=== PATIENT | male | born 1995 | race Caucasian/White ===

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

== ENCOUNTER 2017-01-04 02:35 | Emergency (ER) | payer MEDICAID ==
[~2017-01-04] VITALS: Ht 167.6 cm; Wt 76.7 kg
[2017-01-04 02:49] VITALS: BP_SYST 141
[2017-01-04] MEDS ORDERED: DIPHENHYDRAMINE INJ 50 MG/ML VIAL IM ONE (03:00)
[2017-01-04] MEDS ORDERED: KETOROLAC TROMETHAMINE 30 MG VIAL IM ONE (03:00)
[2017-01-04] MEDS ORDERED: ONDANSETRON HCL 4 MG/2 ML VIAL IM ONE (03:00)
[2017-01-04 03:36] VITALS: BP_SYST 141
== END 2017-01-04 03:36 | disposition home or self-care (01) ==
LOC: SED 02:35
DX: G44.209 Tension-type headache, unspecified, not intractable (principal); R11.10 Vomiting, unspecified; J45.909 Unspecified asthma, uncomplicated; Z88.1 Allergy status to other antibiotic agents; Z91.018 Allergy to other foods
CPT/HCPCS: 96372; 99284; J1200; J1885; J2405

== ENCOUNTER 2017-10-26 15:46 | Emergency (ER) | payer MEDICAID ==
[~2017-10-26] VITALS: Ht 170.2 cm; Wt 70.3 kg
[2017-10-26 15:49] VITALS: BP_SYST 136
[2017-10-26] MEDS ORDERED: IBUPROFEN 600 MG TABLET PO ONE (17:30)
[2017-10-26 18:20] VITALS: BP_SYST 130
== END 2017-10-26 18:20 | disposition home or self-care (01) ==
LOC: SED 15:46
DX: M76.71 Peroneal tendinitis, right leg (principal); J45.909 Unspecified asthma, uncomplicated; Z88.1 Allergy status to other antibiotic agents; Z91.010 Allergy to peanuts
CPT/HCPCS: 99284

== ENCOUNTER 2018-02-13 19:00 | Emergency (ER) | payer MEDICAID ==
[~2018-02-13] VITALS: Ht 170.2 cm; Wt 72.6 kg
[2018-02-13 19:22] VITALS: BP_SYST 134
[2018-02-13] MEDS ORDERED: KETOROLAC TROMETHAMINE 30 MG VIAL IVP ONE (20:00)
[2018-02-13] MEDS ORDERED: NACL 0.9% 1,000 ML IV ONE (20:00)
[2018-02-13] MEDS ORDERED: ONDANSETRON HCL 4 MG/2 ML VIAL IVP ONE (20:00)
[2018-02-13 20:20] LABS: BASOPHILS % (AUTO) 0.4 % (0.0-2.0); EOSINOPHILS # (AUTO) 0.1 K/uL (0.0-0.4); EOSINOPHILS % (AUTO) 0.8 % (0.0-4.0); HEMOGLOBIN 15.1 g/dL (14.0-18.0); LYMPHOCYTES # (AUTO) 1.7 K/uL (1.0-5.5); LYMPHOCYTES % (AUTO) 14.2 % (20.5-51.5); MEAN CORPUSCULAR HEMOGLOBIN 30 pg (27-31); MEAN CORPUSCULAR HGB CONC 33 % (32-36); MEAN CORPUSCULAR VOLUME 90 fL (79.0-98.0); MONOCYTES # (AUTO) 0.9 K/uL (0.0-1.0); MONOCYTES % (AUTO) 7.5 % (1.7-9.3); NEUTROPHILS # (AUTO) 9.2 K/uL (1.8-7.7); NEUTROPHILS % (AUTO) 77.1 % (40.0-70.0); PLATELET COUNT (AUTO) 235 K/uL (130-430); RED CELL DISTRIBUTION WIDTH 11.6 % (9.0-15.0); WHITE BLOOD COUNT (AUTO) 11.9 K/uL (4.5-11.0)
[2018-02-13 20:29] LABS: CALCIUM 9.2 mg/dL (8.4-11.0); CREATININE 0.83 mg/dL (0.55-1.30); POTASSIUM 3.6 mmol/L (3.5-5.1)
[2018-02-13 20:33] LABS: ALBUMIN 4.2 g/dL (3.4-4.8); PROTHROMBIN TIME 9.9 SECS (9.5-12.5); TOTAL BILIRUBIN 0.3 mg/dL (0.0-1.0)
[2018-02-13 21:58] VITALS: BP_SYST 125
== END 2018-02-13 21:58 | disposition home or self-care (01) ==
LOC: SED 19:00
DX: R51 Headache (principal); J45.909 Unspecified asthma, uncomplicated; Z88.1 Allergy status to other antibiotic agents; Z91.010 Allergy to peanuts
CPT/HCPCS: 36415; 70450; 80053; 85025; 85610; 85730; 96361; 96374; 96375; 99285; J1885; J2405; J7030

== ENCOUNTER 2019-03-02 18:30 | Emergency (ER) | payer MEDICAID ==
[~2019-03-02] VITALS: Ht 172.7 cm; Wt 75.7 kg
[2019-03-02 18:37] VITALS: BP_SYST 156
--- NOTE | 2019-03-02 18:40 | NUR ---
Patient to ER bed 3 to gown for evaluation. Side rails up.
--- NOTE | 2019-03-02 18:45 | NUR ---
Patient arrived in the ED c/o 10/17 left testicular pain x 1 week - Taking Advil; no relief. Patient is alert and oriented x4, respirations even and unlabored, speaking in full sentences, ambulating with a steady gait, VS WNL. Patient denied any respiratory distress at this time. Instructed to notify ED staff if symptoms worsen while waiting to be seen by a provider. Patient verbalized understanding.
--- NOTE | 2019-03-02 18:47 | NUR ---
ER Dr. Gruber at bedside examining patient.
--- NOTE | 2019-03-02 18:50 | NUR ---
Urine specimen collected and dropped off at the lab.
[2019-03-02] MEDS ORDERED: PIPERACILLIN/TAZO 3.38 GM in D5W 50 ML IV ONE (19:00)
[2019-03-02] MEDS ORDERED: KETOROLAC TROMETHAMINE 30 MG VIAL IVP ONE (19:00)
--- NOTE | 2019-03-02 19:00 | NUR ---
[employer] at bedside for blood draw.
--- NOTE | 2019-03-02 19:10 | NUR ---
# 18 gauge angiocath placed to RAC. Use of asceptic technique. Opsite placed over site. Blood return noted. Blood for lab drawn from site. Flushed with 10 cc of normal saline. No evidence of infiltration noted. Patient tolerated well.
--- NOTE | 2019-03-02 19:17 | NUR ---
Administered Zosyn and Toradol as ordered by Dr. Gruber. Patient tolerated the medication well.
[2019-03-02] MEDS ORDERED: PIPERACILLIN/TAZOBACTAM 3.375 GM/VIAL (ZOSYN) IV ONE (19:19)
[2019-03-02 19:21] LABS: BASOPHILS # (AUTO) 0.1 K/uL (0.0-0.2); BASOPHILS % (AUTO) 0.7 % (0.0-2.0); EOSINOPHILS # (AUTO) 0.2 K/uL (0.0-0.4); EOSINOPHILS % (AUTO) 2.2 % (0.0-4.0); HEMATOCRIT 45.9 % (36-54); HEMOGLOBIN 15.6 g/dL (14.0-18.0); LYMPHOCYTES # (AUTO) 2.1 K/uL (1.0-5.5); LYMPHOCYTES % (AUTO) 21.3 % (20.5-51.5); MEAN CORPUSCULAR HEMOGLOBIN 31 pg (27-31); MEAN CORPUSCULAR HGB CONC 34 % (32-36); MEAN CORPUSCULAR VOLUME 91 fL (79.0-98.0); MONOCYTES # (AUTO) 0.9 K/uL (0.0-1.0); NEUTROPHILS # (AUTO) 6.7 K/uL (1.8-7.7); NEUTROPHILS % (AUTO) 66.8 % (40.0-70.0); PLATELET COUNT (AUTO) 219 K/uL (130-430); RED BLOOD CELL COUNT(AUTO) 5.02 MIL/uL (4.2-6.2); RED CELL DISTRIBUTION WIDTH 12.4 % (9.0-15.0)
[2019-03-02 19:23] LABS: BILIRUBIN,URINE NEGATIVE (NEGATIVE); BLOOD, URINE NEGATIVE (NEGATIVE); CLARITY/URINE CLEAR (CLEAR); COLOR,URINE YELLOW (YELLOW); GLUCOSE,URINE NEGATIVE (NEGATIVE); KETONES,URINE NEGATIVE (NEGATIVE); LEUKOCYTE ESTERASE ,URINE NEGATIVE (NEGATIVE); NITRITE, URINE NEGATIVE (NEGATIVE); PH,URINE 6.5 (5.0-8.0); PROTEIN URINE NEGATIVE (NEGATIVE); UROBILINOGEN,URINE 0.2 (0.2-1.0)
--- NOTE | 2019-03-02 19:23 | NUR ---
Report given to HENRRY Fernandez.
[2019-03-02 19:31] LABS: CALCIUM 8.9 mg/dL (8.4-11.0); CREATININE 0.91 mg/dL (0.55-1.30); POTASSIUM 3.5 mmol/L (3.5-5.1)
[2019-03-02 19:36] LABS: ALBUMIN 4.3 g/dL (3.4-4.8); TOTAL BILIRUBIN 0.3 mg/dL (0.0-1.0)
--- NOTE | 2019-03-02 19:52 | NUR ---
ER Dr. Lovett at bedside examining patient.
--- NOTE | 2019-03-02 19:59 | NUR ---
Patient went to Ultrasound in stable condition.
[2019-03-02 20:08] LABS: INR 0.9 (0.80-1.20); PROTHROMBIN TIME 9.3 SECS (9.5-12.5)
--- NOTE | 2019-03-02 20:14 | NUR ---
Patient returned from ultrasound in stable condition.
--- NOTE | 2019-03-02 21:34 | NUR ---
ER Dr. Lovett at bedside explaining results to patient.
[2019-03-02 21:50] VITALS: BP_SYST 141
--- NOTE | 2019-03-02 21:50 | NUR ---
Patient given written and verbal discharge instructions and verbalizes understanding. ER MD discussed with patient the results and treatment provided. Patient in stable condition. ID arm band removed. IV catheter removed intact and dressing applied, no active bleeding. Rx of Zofran and [place] given. Patient educated on pain management and to follow up with PMD. Pain Scale 0. Opportunity for questions provided and answered. Medication side effect fact sheet provided.
== END 2019-03-02 21:50 | disposition home or self-care (01) ==
LOC: SED 18:30
DX: N44.8 Other noninflammatory disorders of the testis (principal); N50.812 Left testicular pain; K21.9 Gastro-esophageal reflux disease without esophagitis; J45.909 Unspecified asthma, uncomplicated; Z88.1 Allergy status to other antibiotic agents; Z91.010 Allergy to peanuts
CPT/HCPCS: 36415; 76870; 80053; 81003; 83605; 85025; 85610; 85730; 87040; 87086; 96365; 96375; 99284; J1885; J2543

== ENCOUNTER 2019-09-29 22:43 | Emergency (ER) | payer MEDICAID ==
[~2019-09-29] VITALS: Ht 170.2 cm; Wt 79.4 kg
[2019-09-29 23:24] VITALS: BP_SYST 177
--- NOTE | 2019-09-29 23:50 | NUR ---
Placed in room 3 . Placed on media monitor, blood pressure machine and pulse oximeter. To gown for exam. Side rails up.
--- NOTE | 2019-09-30 | NUR ---
ER at bedside examining patient.
[2019-09-30 00:24] LABS: BILIRUBIN,URINE NEGATIVE (NEGATIVE); BLOOD, URINE NEGATIVE (NEGATIVE); CLARITY/URINE CLEAR (CLEAR); COLOR,URINE YELLOW (YELLOW); GLUCOSE,URINE NEGATIVE (NEGATIVE); KETONES,URINE NEGATIVE (NEGATIVE); LEUKOCYTE ESTERASE ,URINE NEGATIVE (NEGATIVE); NITRITE, URINE NEGATIVE (NEGATIVE); PROTEIN URINE NEGATIVE (NEGATIVE); UROBILINOGEN,URINE 0.2 (0.2-1.0)
[2019-09-30] MEDS: KETOROLAC TROMETHAMINE 60 MG/2 ML VIAL IM ONE (00:25)
[2019-09-30] MEDS: HYDROcodone/ACETAMIN 5-325 MG TAB (NORCO/ VICODIN) PO ONE (00:26)
[2019-09-30 00:27] LABS: CALCIUM 8.2 mg/dL (8.4-11.0); CREATININE 0.98 mg/dL (0.55-1.30); POTASSIUM 3.5 mmol/L (3.5-5.1)
[2019-09-30 00:30] LABS: BASOPHILS # (AUTO) 0.1 K/uL (0.0-0.2); BASOPHILS % (AUTO) 0.8 % (0.0-2.0); EOSINOPHILS # (AUTO) 0.2 K/uL (0.0-0.4); EOSINOPHILS % (AUTO) 2.2 % (0.0-4.0); HEMATOCRIT 45.9 % (36-54); HEMOGLOBIN 15.6 g/dL (14.0-18.0); LYMPHOCYTES # (AUTO) 2.6 K/uL (1.0-5.5); LYMPHOCYTES % (AUTO) 25.3 % (20.5-51.5); MEAN CORPUSCULAR HEMOGLOBIN 30 pg (27-31); MEAN CORPUSCULAR HGB CONC 34 % (32-36); MEAN CORPUSCULAR VOLUME 89 fL (79.0-98.0); MONOCYTES # (AUTO) 1.1 K/uL (0.0-1.0); MONOCYTES % (AUTO) 11.3 % (1.7-9.3); NEUTROPHILS # (AUTO) 6.1 K/uL (1.8-7.7); NEUTROPHILS % (AUTO) 60.4 % (40.0-70.0); PLATELET COUNT (AUTO) 227 K/uL (130-430); RED BLOOD CELL COUNT(AUTO) 5.15 MIL/uL (4.2-6.2); RED CELL DISTRIBUTION WIDTH 12.6 % (9.0-15.0); WHITE BLOOD COUNT (AUTO) 10.1 K/uL (4.8-10.8)
[2019-09-30 00:36] LABS: ALBUMIN 3.9 g/dL (3.4-4.8); TOTAL BILIRUBIN 0.2 mg/dL (0.0-1.0)
--- NOTE | 2019-09-30 01:09 | NUR ---
24 y/o male presents to the ER for left-sided low back pain. Diagnosed with a testicular mass 2 days ago when he saw his urologist Dr. Gibson. Had a CT scan of the abdomen/pelvis and an ultrasound of his scrotum same day. Scheduled for follow-up ultrasound this week and urologist in 2 weeks. Denies testicular pain, vomiting, abdominal pain, shortness of breath, chest pain, flulike symptoms or diarrhea.
[2019-09-30 01:15] VITALS: BP_SYST 165
--- NOTE | 2019-09-30 01:15 | NUR ---
Patient given written and verbal discharge instructions and verbalizes understanding. ER MD discussed with patient the results and treatment provided. Patient in stable condition. ID arm band removed. Rx of [place] given. Patient educated on pain management and to follow up with PMD. Pain Scale 0/10 Opportunity for questions provided and answered. Medication side effect fact sheet provided.
== END 2019-09-30 01:15 | disposition home or self-care (01) ==
LOC: SED 22:43
DX: M54.5 Low back pain (principal); J45.909 Unspecified asthma, uncomplicated; K21.9 Gastro-esophageal reflux disease without esophagitis; Z88.1 Allergy status to other antibiotic agents; Z91.010 Allergy to peanuts
CPT/HCPCS: 36415; 80053; 81003; 85025; 96372; 99283; J1885

== ENCOUNTER 2020-03-14 20:59 | Emergency (ER) | payer MEDICAID ==
[~2020-03-14] VITALS: Ht 170.2 cm; Wt 80.3 kg
[2020-03-14 21:18] VITALS: BP_SYST 154
--- NOTE | 2020-03-14 21:21 | NUR ---
Patient to ER bed 03 to gown for evaluation. Side rails up.
--- NOTE | 2020-03-14 21:30 | NUR ---
pt a&o x4 from home c/o of headache that started earlier today around 3pm & nausea and vomiting. pt rates headache 8 out of 10. pt took an ibuprofen earlier without any relief. pt denies blurry vision, sensitivity to light. will continue monitor.
--- NOTE | 2020-03-14 21:43 | NUR ---
ER at bedside examining patient.
[2020-03-14] MEDS ORDERED: NACL 0.9% 1,000 ML IV ONE (21:45)
[2020-03-14] MEDS ORDERED: METOCLOPRAMIDE HCL 10 MG/2 ML VIAL IVP ONE (21:45)
[2020-03-14] MEDS ORDERED: DIPHENHYDRAMINE INJ 50 MG/ML VIAL IVP ONE (21:45)
--- NOTE | 2020-03-14 21:55 | NUR ---
# 20 gauge angiocath placed to RIGHT AC. Use of asceptic technique. Opsite placed over site. Blood return noted. Blood for lab drawn from site. Flushed with 10 cc of normal saline. No evidence of infiltration noted. Patient tolerated well.
--- NOTE | 2020-03-14 22:04 | NUR ---
PATIENT MEDICATED PER MD ORDERS. PT TOLERATED WELL. WILL CONTINUE TO MONITOR.
--- NOTE | 2020-03-14 22:21 | NUR ---
Patient to [facility] For evaluation. Side rails up.
--- NOTE | 2020-03-14 22:22 | NUR ---
Pt moved to bed H1
--- NOTE | 2020-03-14 23:45 | NUR ---
PT REPORTS HEADACHE HAS COMPLETELY SUBSIDED. 0/10 PAIN.
[2020-03-14 23:51] VITALS: BP_SYST 128
== END 2020-03-14 23:51 | disposition home or self-care (01) ==
LOC: SED 20:59
DX: G43.901 Migraine, unspecified, not intractable, with status migrainosus (principal); J45.909 Unspecified asthma, uncomplicated; K21.9 Gastro-esophageal reflux disease without esophagitis; E07.9 Disorder of thyroid, unspecified; Z85.47 Personal history of malignant neoplasm of testis; Z88.1 Allergy status to other antibiotic agents; Z91.018 Allergy to other foods
CPT/HCPCS: 96361; 96374; 96375; 99284; J1200; J2765; J7030

== ENCOUNTER 2020-06-30 14:49 | Emergency (ER) | payer MEDICAID ==
[~2020-06-30] VITALS: Ht 170.2 cm; Wt 75.3 kg
[2020-06-30 14:55] VITALS: BP_SYST 136
--- NOTE | 2020-06-30 14:55 | NUR ---
Patient to ER bed 7 to gown for evaluation. Side rails up. Report given to HENRRY Kelly.
--- NOTE | 2020-06-30 14:56 | NUR ---
Pt brought by self, A&Ox4, pt presents to ER with R knee pain/swollen after playing basketball yesterday, no open wounds noted, will cont to monitor.
[2020-06-30] MEDS ORDERED: NAPR-688 PO (15:05)
[2020-06-30] MEDS ORDERED: CEPH500C2 PO (15:05)
--- NOTE | 2020-06-30 15:14 | NUR ---
Patient off unit to radiology in wheelchair with Macadam Raker.
--- NOTE | 2020-06-30 15:32 | NUR ---
ER Dr. Wisdom at bedside discussing results with examining patient.
[2020-06-30 15:49] VITALS: BP_SYST 136
--- NOTE | 2020-06-30 15:49 | NUR ---
Patient given written and verbal discharge instructions and verbalizes understanding. ER MD discussed with patient the results and treatment provided. Patient in stable condition. ID arm band removed. Rx of Cephalexin and Naproxen given. Patient educated on pain management and to follow up with PMD. Pain Scale 3/10 tolerable for patient . Opportunity for questions provided and answered. Medication side effect fact sheet provided.
== END 2020-06-30 15:49 | disposition home or self-care (01) ==
LOC: SED 14:49
DX: S80.01XA Contusion of right knee, initial encounter (principal); J45.909 Unspecified asthma, uncomplicated; K21.9 Gastro-esophageal reflux disease without esophagitis; E07.9 Disorder of thyroid, unspecified; Z88.1 Allergy status to other antibiotic agents; Z91.010 Allergy to peanuts; X50.1XXA Overexertion from prolonged static or awkward postures, initial encounter; Y93.67 Activity, basketball; Y92.89 Other specified places as the place of occurrence of the external cause; Y99.8 Other external cause status
CPT/HCPCS: 73564; 99283

== ENCOUNTER 2020-08-27 22:15 | Emergency (ER) | payer MEDICAID ==
[~2020-08-27] VITALS: Ht 170.2 cm; Wt 73.5 kg
[~2020-08-27 22:15] MED LIST changes: -CEPH250S PO; +CEPH500C2 PO; +NAPR-688 PO; -[UNRECOGNIZED DRUG - CODE] PO
[2020-08-27 22:23] VITALS: BP_SYST 147
[2020-08-28] MEDS: IBUPROFEN 600 MG TABLET PO ONE (00:17)
[2020-08-28] MEDS ORDERED: ACET1TAB25 PO (01:22)
[2020-08-28] MEDS ORDERED: NAPR-1169 PO (01:22)
[2020-08-28 01:25] VITALS: BP_SYST 147
== END 2020-08-28 01:25 | disposition home or self-care (01) ==
LOC: SED 22:15
DX: S99.822A Other specified injuries of left foot, initial encounter (principal); J45.909 Unspecified asthma, uncomplicated; K21.9 Gastro-esophageal reflux disease without esophagitis; Z88.1 Allergy status to other antibiotic agents; Z91.010 Allergy to peanuts; Z79.899 Other long term (current) drug therapy; X58.XXXA Exposure to other specified factors, initial encounter; Y93.89 Activity, other specified; Y92.89 Other specified places as the place of occurrence of the external cause; Y99.8 Other external cause status
CPT/HCPCS: 99283

== ENCOUNTER 2021-05-03 23:24 | Emergency (ER) | payer BC, MEDICAID ==
[~2021-05-03] VITALS: Ht 170.2 cm; Wt 75.7 kg
[~2021-05-03 23:24] MED LIST changes: +ACET1TAB25 PO; +CEPH-548 PO; -CEPH500C2 PO; +NAPR-1169 PO
[2021-05-03 23:42] VITALS: BP_SYST 128
--- NOTE | 2021-05-03 23:45 | NUR ---
Patient triaged and placed in waiting room. VSS and patient appears in no acute distress at this time. Accompanied by self, awaiting available bed, and MD notified of need for MSE.
--- NOTE | 2021-05-03 23:58 | NUR ---
ER in waiting room examining patient.
[2021-05-04] MEDS ORDERED: EPIN0.3P3 IM (00:09)
[2021-05-04] MEDS ORDERED: DIPH25CA83 PO (00:09)
[2021-05-04] MEDS ORDERED: FAMO20TA8 PO (00:09)
[2021-05-04] MEDS ORDERED: PRED20TA PO (00:09)
[2021-05-04] MEDS ORDERED: DIPHENHYDRAMINE INJ 50 MG/ML VIAL IM ONE (00:15)
[2021-05-04] MEDS ORDERED: FAMOTIDINE 20 MG TABLET PO ONE (00:15)
[2021-05-04] MEDS ORDERED: methylPREDNISolone SOD SUCC/PF 62.5 MG/ML VIAL IM ONE (00:15)
[2021-05-04 00:59] VITALS: BP_SYST 125
--- NOTE | 2021-05-04 00:59 | NUR ---
Patient given written and verbal discharge instructions and verbalizes understanding. ER MD discussed with patient the treatment provided. Patient in stable condition. ID arm band removed. Rx of Prednisone sent to pharmacy of choice. Patient educated on pain management and to follow up with PMD. Pain Scale 0/10. Opportunity for questions provided and answered.
== END 2021-05-04 00:59 | disposition home or self-care (01) ==
LOC: SED 23:24
DX: L50.9 Urticaria, unspecified (principal); J45.909 Unspecified asthma, uncomplicated; Z88.1 Allergy status to other antibiotic agents; Z91.010 Allergy to peanuts; Z79.899 Other long term (current) drug therapy
CPT/HCPCS: 96372; 99284; J1200; J2930

== ENCOUNTER 2021-05-05 06:19 | Emergency (ER) | payer BC, MEDICAID, SELFPAY ==
[~2021-05-05] VITALS: Ht 170.2 cm; Wt 75.7 kg
[~2021-05-05 06:19] MED LIST changes: +DIPH25CA83 PO; +EPIN0.3P3 IM; +FAMO20TA8 PO; +PRED20TA PO
[2021-05-05 06:34] VITALS: BP_SYST 148
--- NOTE | 2021-05-05 06:50 | NUR ---
PATIENT IS ALLERGIC TO VANCOMYCIN AND PATIENTS MANAGER [employer] GAVE HIM CLINDAMYCIN TOPICAL OINTMENT FOR AN INFECTED INGROWN HAIR. PATIENT HAS THE REDNESS AND BUMPS ON AREAS TOPICAL OINTMENT WAS APPLIED
--- NOTE | 2021-05-05 07:00 | NUR ---
ER at bedside examining patient.
--- NOTE | 2021-05-05 07:24 | NUR ---
assumed care of pt., here for rash to neck and top of back and chest, c/o itchiness no pain, rash is red and raised
[2021-05-05] MEDS ORDERED: FAMOTIDINE 20 MG TABLET PO ONE (07:45)
[2021-05-05] MEDS ORDERED: DIPHENHYDRAMINE INJ 50 MG/ML VIAL IVP ONE (07:45)
[2021-05-05] MEDS ORDERED: methylPREDNISolone SOD SUCC/PF 62.5 MG/ML VIAL IVP ONE (07:45)
[2021-05-05 09:53] VITALS: BP_SYST 152
--- NOTE | 2021-05-05 09:53 | NUR ---
Patient given written and verbal discharge instructions and verbalizes understanding. ER Dr. Meza discussed with patient the results and treatment provided. Patient in stable condition. ID arm band removed. IV catheter removed intact and dressing applied, no active bleeding. Patient educated on pain management and to follow up with PMD. Pain Scale 0. Opportunity for questions provided and answered.
== END 2021-05-05 09:53 | disposition home or self-care (01) ==
LOC: SED 06:19
DX: T78.40XA Allergy, unspecified, initial encounter (principal); L50.0 Allergic urticaria; X58.XXXA Exposure to other specified factors, initial encounter; Y93.9 Activity, unspecified; Y92.9 Unspecified place or not applicable; Y99.9 Unspecified external cause status
CPT/HCPCS: 96374; 96375; 99284; J1200; J2930

== ENCOUNTER 2023-03-25 22:01 | Emergency (ER) | payer BC, MEDICAID ==
[~2023-03-25] VITALS: Ht 170.2 cm; Wt 80.3 kg
[~2023-03-25 22:01] MED LIST changes: +ACET-1 PO; -ACET1TAB25 PO
[2023-03-25 22:15] VITALS: BP_SYST 134; PULSE 84; RESP 16; TEMP 97.9; O2SAT 96
[2023-03-26] MEDS ORDERED: IBUP-1969 PO (00:21)
[2023-03-26] MEDS ORDERED: ACET-2634 PO (00:21)
[2023-03-26] MEDS ORDERED: ACETAMINOPHEN 500 MG TABLET PO ONE (00:30)
[2023-03-26 00:41] VITALS: BP_SYST 134; PULSE 80; RESP 16; TEMP 97.9; O2SAT 96
== END 2023-03-26 00:41 | disposition home or self-care (01) ==
LOC: SED 22:01
DX: U07.1 COVID-19 (principal); R05.9 Cough, unspecified; M79.10 Myalgia, unspecified site; R09.89 Other specified symptoms and signs involving the circulatory and respiratory systems; J45.909 Unspecified asthma, uncomplicated; K21.9 Gastro-esophageal reflux disease without esophagitis; Z85.47 Personal history of malignant neoplasm of testis; Z88.1 Allergy status to other antibiotic agents; Z91.010 Allergy to peanuts; Z79.899 Other long term (current) drug therapy
CPT/HCPCS: 36415; 99283

== ENCOUNTER 2024-01-06 09:59 | Emergency (ER) | payer BC, MEDICAID ==
[~2024-01-06] VITALS: Ht 170.2 cm; Wt 83.9 kg
[~2024-01-06 09:59] MED LIST changes: +ACET-2634 PO; +IBUP-1969 PO
[2024-01-06 10:17] VITALS: BP_SYST 154; PULSE 102; RESP 16; TEMP 98.2; O2SAT 96
[2024-01-06] MEDS: ONDANSETRON 4 MG ODT TAB PO ONE (10:34)
[2024-01-06 10:47] LABS: BASOPHILS % (AUTO) 0.1 % (0.0-2.0); EOSINOPHILS % (AUTO) 0.3 % (0.0-4.0); HEMATOCRIT 49.1 % (36-54); HEMOGLOBIN 16.4 g/dL (14.0-18.0); LYMPHOCYTES # (AUTO) 0.4 K/uL (1.0-5.5); MEAN CORPUSCULAR HEMOGLOBIN 29 pg (27-31); MEAN CORPUSCULAR HGB CONC 33 % (32-36); MEAN CORPUSCULAR VOLUME 88 fL (79.0-98.0); MONOCYTES # (AUTO) 0.8 K/uL (0.0-1.0); MONOCYTES % (AUTO) 7.6 % (1.7-9.3); NEUTROPHILS # (AUTO) 8.9 K/uL (1.8-7.7); PLATELET COUNT (AUTO) 208 K/uL (130-430); RED BLOOD CELL COUNT(AUTO) 5.59 MIL/uL (4.2-6.2); RED CELL DISTRIBUTION WIDTH 12.9 % (9.0-15.0); WHITE BLOOD COUNT (AUTO) 10.1 K/uL (4.8-10.8)
[2024-01-06 11:08] LABS: ALANINE AMINOTRANSFERASE 36 U/L (12-78); ALBUMIN 4.2 g/dL (3.4-4.8); AMYLASE 74 U/L (0-100); ANION GAP 11 (5-15); ASPARTATE AMINOTRANSFERASE 21 U/L (10-37); BILIRUBIN,DIRECT 0.2 mg/dL (0.0-0.3); CARBON DIOXIDE 26 mmol/L (23-29); CHLORIDE 101 mmol/L (98-107); CREATININE 1.16 mg/dL (0.55-1.30); GFR AFRICAN AMERICAN 98 mL/min (>90); GFR NON AFRICAN-AMERICAN 81 mL/min (>90); GLUCOSE 118 mg/dL (74-106); LIPASE 72 U/L (16-77); POTASSIUM 3.9 mmol/L (3.5-5.1); SODIUM SERUM 138 mmol/L (136-145); TOTAL BILIRUBIN 0.9 mg/dL (0.0-1.0); TOTAL PROTEIN, SERUM 8.2 g/dL (6.4-8.3); UREA NITROGEN, BLOOD 20 mg/dL (8-21)
[2024-01-06 11:30] LABS: BILIRUBIN,URINE NEGATIVE (NEGATIVE); BLOOD, URINE NEGATIVE (NEGATIVE); CLARITY/URINE CLEAR (CLEAR); COLOR,URINE YELLOW (YELLOW); GLUCOSE,URINE NEGATIVE (NEGATIVE); KETONES,URINE NEGATIVE (NEGATIVE); LEUKOCYTE ESTERASE ,URINE NEGATIVE (NEGATIVE); NITRITE, URINE NEGATIVE (NEGATIVE); PROTEIN URINE NEGATIVE (NEGATIVE); UROBILINOGEN,URINE 0.2 (0.2-1.0)
[2024-01-06 11:30] LABS: ACETONE, SERUM NEGATIVE (NEGATIVE)
[2024-01-06] MEDS ORDERED: ONDA-8 TL (12:05)
[2024-01-06 12:34] VITALS: BP_SYST 154; PULSE 102; RESP 16; TEMP 98.2; O2SAT 96
== END 2024-01-06 12:28 | disposition home or self-care (01) ==
LOC: SED 09:59
DX: A05.9 Bacterial foodborne intoxication, unspecified (principal); R10.10 Upper abdominal pain, unspecified; R11.10 Vomiting, unspecified; Z85.47 Personal history of malignant neoplasm of testis; Z88.1 Allergy status to other antibiotic agents; Z79.899 Other long term (current) drug therapy; Z79.2 Long term (current) use of antibiotics
CPT/HCPCS: 99283; 80076; 80048; 81001; 82009; 82150; 83690; 85025; 36415; 83605; 81003; Q0162